=== PATIENT | female | born 1940 | race Caucasian/White ===

== ENCOUNTER 2016-09-01 11:47 | Emergency (ER) | payer OTHER, MEDICARE ==
[~2016-09-01] VITALS: Ht 167.6 cm; Wt 81.6 kg
--- NOTE | 2016-09-01 13:58 | ED CARDIAC/CP/PALPITATIONS ---
History of Present Illness General Chief Complaint: Chest Pain Stated Complaint: CHEST PAIN Source: patient Exam Limitations: no limitations Vital Signs & Intake/Output Vital Signs & Intake/Output Vital Signs Date Time Temp Pulse Resp B/P B/P Pulse O2 O2 Flow FiO2 Mean Ox Delivery Rate 09/01 1524 98.5 74 18 150/72 97 Room Air Room Air ED Intake and Output 09/02 0000 05 1200 Intake Total Output Total Balance Patient 180 lb Weight Allergies Coded Allergies: Penicillins (Intermediate, EYES SWELLING 09/01/16) Sulfa (Sulfonamide Antibiotics) (Intermediate, EYE SWELLING 09/01/16) ampicillin (Intermediate, EYES SWELLING 09/01/16) Reconcile Medications Aspirin (Aspirin*) 81 MG TAB.CHEW 1 TAB PO DAILY HEART HEALTH (Reported) Biotin 5,000 MCG TAB.RAPDIS 1 TAB PO DAILY SUPPLEMENT (Reported) Cholecalciferol (Vitamin D3) (Vitamin D3) 5,000 UNIT CAPSULE 1 CAP PO DAILY SUPPLEMENT (Reported) Levothyroxine Sodium 75 MCG TABLET 1 TAB PO DAILY AC THYROID (Reported) Multivitamin (Daily Multiple Vitamin) 1 EACH TABLET 1 TAB PO DAILY VITAMIN SUPPORT (Reported) Naproxen (Naprosyn) 500 MG TABLET 1 TAB PO BID PRN pain and inflammation [place] Boro-3 Fatty Acids/Fish Oil ([place] Boro 3 1,000 MG Softgel) 300 MG-1,000 MG CAPSULE 1 CAP PO DAILY SUPPLEMENT (Reported) Pravastatin Sodium 20 MG TABLET 1 TAB PO DAILY CHOLESTEROL (Reported) Ubidecarenone (Co Q-10) 100 MG CAPSULE 1 CAP PO DAILY SUPPLEMENT (Reported) Triage Note: PT COMPLAINS OF L SIDE LOW RIB PAIN WHEN SHE COUGHS/SNEEZES/ OR MOVES. DENIES PAIN IN HER CHEST. PT IS PAIN FREE WHEN SHE SITS STILL Triage Nurses Notes Reviewed? yes HPI: This patient is a 75-year-old female with a past medical history including bronchitis, hypothyroidism, hypercholesterolemia who presented to the emergency department today for evaluation of left-sided rib pain. The patient reported that the end of last year she had bronchitis at which time she was having pain in her left rib cage after she coughed. She reported that once her bronchitis resolved, and the rib pain resolved as well. However, approximately 3 days ago she started having pain in that area Associated with Coughing and Sneezing. She Reported That He Gets up to an 8 Out Of 10, Sharp, Nonradiating. The Patient Is Worried about a Blood Clot. She Denied Any Extremity Injuries. No Recent Surgery or Prolonged Immobilization. No Recent Travel. She Denied Any Leg Pain or Calf Swelling. The Patient Denied Any Hemoptysis. She Denied Any Difficulty Breathing, Fevers, Chills, Abdominal Pain, or Nausea or Vomiting. (SHAHBAZ FAN PA-C) Past History Travel History Traveled to [place] past 21 day No Medical History Any Pertinent Medical History? see below for history Neurological: NONE EENT: NONE Cardiovascular: hyperlipidemia Respiratory: NONE Gastrointestinal: NONE Hepatic: NONE Renal: NONE Musculoskeletal: NONE Psychiatric: NONE Endocrine: hypothyroidism Blood Disorders: NONE Cancer(s): NONE INFORMATICS SPECIALIST/Reproductive: NONE Surgical History Surgical History: non-contributory Psychosocial History What is your primary language Lao Tobacco Use: Never used ETOH Use: denies use Illicit Drug Use: denies illicit drug use Family History Hx Contributory? No (SHAHBAZ FAN PA-C) Review of Systems Review of Systems Constitutional: Reports: no symptoms. EENTM: Reports: no symptoms. Respiratory: Reports: no symptoms. Cardiovascular: Reports: no symptoms. GI: Reports: no symptoms. Genitourinary: Reports: no symptoms. Musculoskeletal: Reports: see HPI. Skin: Reports: no symptoms. Neurological/Psychological: Reports: no symptoms. All Other Systems: Reviewed and Negative (SHAHBAZ FAN PA-C) Physical Exam Physical Exam Cardiovascular: regular rate/rhythm, normal peripheral pulses, NO MURMURS, RUBS, OR GALLOPS Comments: Well-developed well-nourished person in no acute distress HEENT: Normal EENT exam, moist mucous membranes Pupils equally round and reactive to light. Neck: Supple Back: Normal gait Respiratory: Tenderness to palpation over the left lower rib cage, mid clavicular line. No respiratory distress. Speaking in full sentences. Lungs clear to auscultation bilaterally with no wheezes, rales, rhonchi Abdomen: Soft, nontender nondistended, no appreciable organomegaly. Normal bowel sounds. No ascites Extremity: Normal pulses and equal pulses Neuro: Alert oriented x3, motor sensory normal, cranial nerves II through XII grossly intact. Skin: No appreciable rash on exposed skin, skin is warm and dry. Psych: Mood and affect is normal, memory and judgment is normal. Core Measures ACS in differential dx? Yes Severe Sepsis Present: No Septic Shock Present: No (SHAHBAZ FAN PA-C) Progress Differential Diagnosis: AMI, aortic dissection, atrial fibrillation, cholecystitis, costochondritis, hyperkalemia, hyperthyroid, hyperventilation, musculoskeletal pain, myocarditis, pancreatitis, pericarditis, pneumonia, pneumothorax, PSVT, pulmonary embolism, PVCs/PACs, rib fracture, unstable angina , muscle strain Plan of Care: Orders Procedure Date/time Status TROPONIN LEVEL 09/01 1322 Complete D-DIMER 09/01 1322 Complete COMPREHENSIVE METABOLIC PANEL 09/01 1322 Complete CBC WITHOUT DIFFERENTIAL 09/01 1322 Complete Laboratory Tests 09/01/16 1405: Anion Gap 12, Estimated GFR > 60, BUN/Creatinine Ratio 21.4, Glucose 110 H, Calcium 10.0, Total Bilirubin 0.4, AST 25, ALT 37, Alkaline Phosphatase 64, Troponin I < 0.01, Total Protein 7.5, Albumin 4.7, Globulin 2.8, Albumin/ Globulin Ratio 1.7, D-Dimer < 200, CBC w Diff NO MAN DIFF REQ, RBC 5.01, MCV 85.8, MCH 29.2, RDW 13.1, MPV 9.4, Gran % 60.5, Lymphocytes % 33.0, Monocytes % 5.3, Eosinophils % 0.8, Basophils % 0.4, Absolute Granulocytes 5.1, Absolute Lymphocytes 2.8, Absolute Monocytes 0.4, Absolute Eosinophils 0.1, Absolute Basophils 0, PUBS MCHC 34.0 Diagnostic Imaging: Viewed by Me: Radiology Read. Discussed w/RAD: Radiology Read. Radiology Impression: PATIENT: THOMAS LUCAS PRESENT AGE: 75 PATIENT ACCOUNT NO: [id number] : 41 LOCATION: [facility] ORDERING PHYSICIAN: SHAHBAZ FAN PA-C SERVICE DATE: 09/01/16 EXAM TYPE: RAD - XRY-CHEST XRAY, PA AND LATERAL; XRY-RIBS UNILATERAL-LEFT EXAMINATION : XR CHEST AND RIBS, LEFT CLINICAL INFORMATION: Pain COMPARISON: None TECHNIQUE: Frontal and lateral views of the chest as well as 3 views of the left ribs FINDINGS: The cardiomediastinal silhouette is normal. The lungs are clear and appear somewhat hyperinflated. No consolidation, pulmonary edema, pleural effusion, or pneumothorax. The bones appear demineralized and there are mild multilevel degenerative changes of the spine without compression deformity. Targeted views of the left ribs demonstrate no evidence of fracture. IMPRESSION: No acute abnormality. No evidence of left-sided rib fracture. DICTATED BY: DEVI TELLO MD DATE/TIME DICTATED:09/01/161411 PATROL DRIVER:MAYANK DATE/ TIME TRANSCRIBED:09/01/161411 CONFIDENTIAL, DO NOT COPY WITHOUT APPROPRIATE AUTHORIZATION. <Electronically signed in Other Vendor System> SIGNED BY: DEVI TELLO MD 09/01/161417 Initial ED EKG: normal axis, normal intervals, normal sinus rhythm, no ST T wave changes, 79 BPM (SHAHBAZ FAN PA-C) Departure Departure Disposition: HOME OR SELF CARE Condition: Stable Clinical Impression Primary Impression: Muscle strain of anterior chest wall Referrals: JOSEFA PAYNE MD (PCP/Family) Additional Instructions: Please follow-up with your primary care physician. Take medication for pain as directed. Use incentive spirometer as directed. Return for any worsening symptoms or concerns. Departure Forms: Customer Survey General Discharge Information Prescriptions: Current Visit Scripts Naproxen (Naprosyn) 1 TAB PO BID PRN pain and inflammation #20 TAB (SHAHBAZ FAN PA-C) PA/FRIT MIXER Co-Sign Statement Statement: ED Attending supervision documentation- [] I saw and evaluated the patient. I have also reviewed all the pertinent lab results and diagnostic results. I agree with the findings and the plan of care as documented in the PA's/FRIT MIXER's documentation. [X] I have reviewed the ED Record and agree with the PA's/FRIT MIXER's documentation. [] Additions or exceptions (if any) to the PAs/FRIT MIXER's note and plan are summarized below: [] (PRIMO RUTLEDGE,JANET) Critical Care Note Critical Care Note Critical Care Time: non-applicable (SHAHBAZ FAN PA-C)
[2016-09-01] MEDS ORDERED: ASPIRIN81 M4 PO (14:12)
[2016-09-01] MEDS ORDERED: LEVOTHYROXINE75 MCG PO (14:12)
[2016-09-01] MEDS ORDERED: PRAVASTATIN SOD20 M2 PO (14:12)
[2016-09-01] MEDS ORDERED: OMEGA 3 1,0001 EACH PO (14:13)
[2016-09-01] MEDS ORDERED: VITAMIN D35000 UNIT PO (14:13)
[2016-09-01] MEDS ORDERED: BIOTIN5000 MCG PO (14:14)
[2016-09-01] MEDS ORDERED: CO Q-10100 MG PO (14:14)
[2016-09-01] MEDS ORDERED: DAILY MULTIPLE1 EACH PO (14:15)
[2016-09-01 14:17] LABS: ABSOLUTE BASOPHIL COUNT 0 /CUMM (0.0-0.2); ABSOLUTE EOSINOPHIL COUNT 0.1 /CUMM (0.0-0.7); ABSOLUTE GRANULOCYTE CT 5.1 /CUMM (1.4-6.5); ABSOLUTE LYMPH COUNT 2.8 /CUMM (1.2-3.4); ABSOLUTE MONOCYTE COUNT 0.4 /CUMM (0.10-0.60); BASOPHIL % 0.4 % (0.0-2.0); EOSINOPHIL % 0.8 % (0-5); GRANULOCYTE % 60.5 % (42.2-75.2); MEAN CORPUSCULAR HGB 29.2 PG (27.0-31.0); MEAN CORPUSCULAR VOLUME 85.8 FL (81.0-99.0); MEAN PLATELET VOLUME 9.4 FL (7.4-10.4); PLATELET COUNT 229 /CUMM (130-400); RBC DISTRIBUTION WIDTH 13.1 % (11.5-14.5); RED BLOOD CELL CT 5.01 /CUMM (4.20-5.40); WHITE BLOOD CELL COUNT 8.5 /CUMM (4.8-10.8)
--- NOTE | 2016-09-01 14:18 | RADIOLOGY REPORT ---
EXAMINATION: XR CHEST AND RIBS, LEFT CLINICAL INFORMATION: Pain COMPARISON: None TECHNIQUE: Frontal and lateral views of the chest as well as 3 views of the left ribs FINDINGS: The cardiomediastinal silhouette is normal. The lungs are clear and appear somewhat hyperinflated. No consolidation, pulmonary edema, pleural effusion, or pneumothorax. The bones appear demineralized and there are mild multilevel degenerative changes of the spine without compression deformity. Targeted views of the left ribs demonstrate no evidence of fracture. IMPRESSION: No acute abnormality. No evidence of left-sided rib fracture.
[2016-09-01] MEDS ORDERED: NAPROSYN500 M1 PO (15:06)
[2016-09-01 15:24] VITALS: BP 150/72
== END 2016-09-01 15:25 ==
LOC: ERH 11:47
PROVIDERS: Physician Assistant
DX: S29.012A Strain of muscle and tendon of back wall of thorax, initial encounter (principal); X58.XXXA Exposure to other specified factors, initial encounter; Y92.9 Unspecified place or not applicable; Y93.9 Activity, unspecified
CPT/HCPCS: 71100-LT; 93005; 93010